=== PATIENT | female | born 1955 ===

== ENCOUNTER 2025-07-17 14:05 | Emergency (ER) | payer MEDICARE, SELFPAY ==
--- NOTE | ~2025-07-17 | CT_ITS ---
EXAMINATION: CT HEAD WITHOUT IV CONTRAST HISTORY: trauma. TECHNIQUE: Unenhanced helical CT of the head was performed per standard departmental protocol. Coronal and sagittal reformats of the head were also evaluated. One or more of the following techniques was used for dose reduction: Automated exposure control, adjustment of the mA and/or kV according to patient size, use of iterative reconstruction technique. DLP: 646 mGy-cm COMPARISON: There are no prior studies available for comparison. FINDINGS: BRAIN: The brain parenchyma is unremarkable. There is normal ko/white differentiation. The ventricular system is normal in size and configuration. There is no mass effect or midline shift. No intra- or extra-axial fluid collections are identified. SINUSES: Minimal membranous soft tissue thickening in the left frontal sinus. Ossification in the right frontal sinus probably representing a small osteoma. The visualized paranasal sinuses are otherwise clear. The mastoid air cells and middle ear cavities are well pneumatized. ORBITS: The visualized orbits are unremarkable. BONES/SOFT TISSUES: The extracranial soft tissues are unremarkable. The calvarium is intact. No suspicious lytic or sclerotic lesions. CT/CT head/brain wo IV con IMPRESSION: No acute intracranial abnormality. Electronically signed by: Laura Obregon MD 07/17/2025 04:14 PM [facility]
--- NOTE | ~2025-07-17 | CT_ITS ---
EXAMINATION: CT CERVICAL SPINE WITHOUT IV CONTRAST HISTORY: trauma. TECHNIQUE: Helical CT of the cervical spine was performed per standard departmental protocol. Coronal and sagittal reformatted images were also evaluated. One or more of the following techniques was used for dose reduction: Automated exposure control, adjustment of the mA and/or kV according to patient size, use of iterative reconstruction technique. DLP: 442 mGy-cm COMPARISON: There are no prior studies available for comparison. FINDINGS: CERVICAL SPINE: There is mild 3 mm anterior subluxation of C4 with respect to C5. Bone alignment is otherwise normal. No acute fracture. No dislocation. Multilevel degenerative spondylosis and degenerative disc disease greatest at C5-6 and C6-7. Mild bilateral multilevel facet arthritis. Degenerative changes at the C1 dens articulation. BRAIN: The visualized portion of the brain is unremarkable. SINUSES: The visualized paranasal sinuses, mastoid air cells and middle ear cavities are unremarkable. LUNG APICES: The visualized lung apices are clear. SOFT TISSUES: Prominent adenoidal soft tissue seen in the oropharynx. There is asymmetric increased left parapharyngeal soft tissue causing mass effect on the oropharynx. There is apparent effacement of the left piriform sinus. Correlation with visual inspection recommended. This could be better evaluated with neck CT with IV contrast if clinically warranted. Small bilateral cervical lymph nodes. No enlarged lymph nodes. 1.3 x 1.8 cm right thyroid nodule. CT/CT cervical spine wo IV con IMPRESSION: No acute fracture or dislocation. Mild 3 mm anterior subluxation of C4 with respect to C5. Degenerative changes. Prominent adenoidal soft tissue. Asymmetric increased soft tissue in the left parapharyngeal space causing mass effect on the oropharynx and apparent effacement of the left piriform sinus. Correlation with visual inspection recommended. This could be better evaluated with soft tissue neck CT with IV contrast if clinically warranted. 1.3 x 1.8 cm right thyroid nodule. Follow-up elective outpatient thyroid ultrasound recommended. Electronically signed by: Laura Obregon MD 07/17/2025 04:05 PM [facility]
--- NOTE | ~2025-07-17 | CT_ITS ---
EXAMINATION: CT ABDOMEN PELVIS WITHOUT IV CONTRAST HISTORY: rt flank pain,s/p fall COMPARISON: There are no prior studies available for comparison. TECHNIQUE: CT scan of the abdomen and pelvis was performed without contrast using standard departmental protocol. Coronal and sagittal reformatted images were generated and reviewed. This CT exam was performed with one or more of the following dose reduction techniques: automated exposure control, adjustment of the mA and/or kV according to patient size, use of iterative reconstruction technique. DLP: 683 mGy-cm FINDINGS: LOWER CHEST: The visualized lung bases are clear. There is no pleural effusion. CARDIOVASCULATURE: The heart is normal in size. There is no pericardial effusion. LIVER: The liver is normal in size and contour. The liver has an unremarkable unenhanced appearance. GALLBLADDER / BILE DUCTS: The gallbladder is unremarkable. There is no intra or extrahepatic biliary ductal dilatation. SPLEEN: The spleen is normal in size and has an unremarkable unenhanced appearance. PANCREAS: The pancreas has an unremarkable unenhanced appearance. ADRENAL GLANDS: Unremarkable. KIDNEYS/RETROPERITONEUM: No renal calculi are identified. There is no hydronephrosis. No ureteral dilatation. No perinephric collection. LYMPH NODES: No retroperitoneal lymphadenopathy is identified in the abdomen or pelvis. VASCULATURE: No abdominal aortic aneurysm MESENTERY/PERITONEUM: No free fluid. No masses. There is no free intraperitoneal gas. STOMACH: Normal . SMALL BOWEL: The small bowel is normal in caliber. COLON: Constipation. The colon is otherwise unremarkable. APPENDIX: Normal. URINARY BLADDER/PELVIC ORGANS: The urinary bladder is unremarkable. Uterus and adnexa are unremarkable. No pelvic mass. BONES / SOFT TISSUES: Degenerative changes of the spine. Probable L4 vertebral body hemangioma. Small umbilical hernia containing fat. CT/CT abdomen pelvis wo IV con IMPRESSION: No acute findings. The right kidney is normal-appearing. Constipation. Electronically signed by: Laura Obregon MD 07/17/2025 04:13 PM [facility]
[2025-07-17 14:11] VITALS: BP 126/67; BP 128/62; PULSE 58; PULSE 62; RESP 16; TEMP 36.5; O2SAT 96; O2SAT 97; BMI 31.0
--- NOTE | 2025-07-17 14:53 | ED_ITS ---
HPI - Fall General Chief Complaint: Fall Stated Complaint: fall, R/L knee pain, BACK PAIN -THINNERS +TRENT Time Seen by Provider: 07/17/25 14:47 Source: patient Mode of arrival: ambulatory Limitations: no limitations History of Present Illness HPI Narrative: This is 70 years old female patient brought in by ambulance after a mechanical fall she was a grocery store she has slipped and fell she is complaining of lower back pain complaint: fall Onset (ago): hour(s) (1) Fall from: standing Place fall occurred: other (grocery store) Loss of consciousness: none Prolonged down time: no Symptoms prior to fall: none Context: tripped/slipped Associated symptoms (after fall): denies Related Data Previous Rx's ?Medication ?Instructions ?Recorded cyclobenzaprine 5 mg tablet 5 mg PO TID PRN muscle spa sm #14 07/17/25 tabs tramadol 50 mg tablet 50 mg PO BID PRN pain #8 tab s 07/17/25 Allergies Allergy/AdvReac Type Severity Reaction Status Date / Time aspirin (ASA) Allergy Hives Verified 07/17/25 14:15 Penicillins (PCN) Allergy Hives Verified 07/17/25 14:15 Review of Systems Review of Systems: Yes all other systems are reviewed and are negative ENT: Reports system reviewed and no additional complaints, except as documented Cardiovascular: Cardiovascular: Reports no additional cardiovascular complaints [facility] Past Medical History Attestation statement: The following information was validated with the patient. [facility] Narrative: diverticulitis Social History Social History Advance Directives: No Advance Directives Information Provided: Yes Physical Exam Vital Signs: Vital Signs: Last Vital Signs Temp 97.7 F 07/17/25 16:42 Pulse 62 07/17/25 16:42 Resp 16 07/17/25 16:42 BP 128/62 07/17/25 16:42 Pulse Ox 96 07/17/25 16:42 O2 Del Method Room Air 07/17/25 16:42 BMI result Body Mass Index 31.0 No acute distress Const: General: cooperative Nutritional Appearance: well nourished Orientation/consciousness: patient oriented x3 Limitations: no limitations HEENT: Head: Yes normal to inspection Ears: hearing grossly normal bilaterally General nose exam: Normal external nose present Face and sinus: Yes normal facial exam Mouth: Normal oral and palatal mucosa present Neck: Neck: Yes normal visual inspection Chest: Chest palpation & inspection: normal inspection of the chest Resp: Effort & Inspection: normal respiratory effort Auscultation: clear to auscultation bilaterally Cardio: Jugular venous distension: no JVD Rate: regular rate Rhythm: regular rhythm GI: Inspection: Yes normal to inspection Palpation (GI): Soft to palpation Skin: General skin exam: no rashes or lesions noted, elasticity normal and turgor normal Lesions: no lesions Rashes: no rashes Trauma: no lace rations or abrasions Neuro: General: patient oriented x3 Course Reevaluation(s) Reevaluation #1: Imaging pending the case will be signed out to Dr Sorensen I am off shift now Time: 15:56 Medications Administered Discontinued Medications Generic Name Dose Route Start Last Admin Trade Name Freq PRN Reason Stop Dose Admin Acetaminophen 975 mg 07/17/25 14:50 07/17/25 15:06 Acetaminophen 325 Mg Tablet PO 07/17/25 14:51 975 mg ONCE ONE Administration Tramadol HCl 50 mg 07/17/25 16:14 07/17/25 16:21 Tramadol Hcl 50 Mg Tablet PO 07/17/25 16:15 50 mg ONCE ONE Administration Medical Decision Making Medical Decision Making [facility] Narrative: Patient presented to the emergency department complaining of fall lower back pain we will obtain imaging I received sign-out from my colleague Dr. Monterroso Patient was given an additional dose of tramadol. CT scans of the head cervical spine, abdomen and pelvis did not show any acute abnormality the CT scan of the cervical spine mentioned that there is an asymmetric increased soft tissue in the left parapharyngeal space causing mass effect on the oropharynx. Patient does not have any symptoms, on physical exam, patient is upper airway is completely patent. Patient denies any recent URIs, sore throat. The above-mentioned was discussed with the patient. Differential Diagnosis Fracture/contusion Admission/Observation Consideration of admission/observation: Escalation of care including admission/observation considered Independent Interpretation I performed an independent interpretation of an: CT Scan Radiology Impression Discussion of test interpretation with radiology: I have reviewed the radiologist's reading. Radiologist Impression: BRAIN: The brain parenchyma is unremarkable. There is normal ko/white differentiation. The ventricular system is normal in size and configuration. There is no mass effect or midline shift. No intra- or extra-axial fluid collections are identified. SINUSES: Minimal membranous soft tissue thickening in the left frontal sinus. Ossification in the right frontal sinus probably representing a small osteoma. The visualized paranasal sinuses are otherwise clear. The mastoid air cells and middle ear cavities are well pneumatized. ORBITS: The visualized orbits are unremarkable. BONES/SOFT TISSUES: The extracranial soft tissues are unremarkable. The calvarium is intact. No suspicious lytic or sclerotic lesions No acute fracture or dislocation. Mild 3 mm anterior subluxation of C4 with respect to C5. Degenerative changes. Prominent adenoidal soft tissue. Asymmetric increased soft tissue in the left parapharyngeal space causing mass effect on the oropharynx and apparent effacement of the left piriform sinus. Correlation with visual inspection recommended. This could be better evaluated with soft tissue neck CT with IV contrast if clinically warranted. 1.3 x 1.8 cm right thyroid nodule. Follow-up elective outpatient thyroid ultrasound recommended. No acute findings. The right kidney is normal-appearing. Constipation. Discharge Plan Discharge Clinical Impression: Fall, Flank pain Patient Disposition: Home, Self-Care Instructions: Fall Prevention for Older Adults (ED), Musculoskeletal Pain (ED) Additional Instructions: Please follow-up with your primary care physician tomorrow. If you have any worsening or new symptoms, please return to the emergency room or call 911 Prescriptions: New cyclobenzaprine 5 mg tablet 5 mg PO TID PRN (Reason: muscle spasm) Qty: 14 0RF Rx Instructions: do not take together with tramadol tramadol 50 mg tablet 50 mg PO BID PRN (Reason: pain) Qty: 8 0RF Interventions: ED Discharge Assessment Last Done: 07/17/25 16:42 Discharge Date/Time: 07/17/25 16:43 Print Language: Khmer
[2025-07-17 16:42] VITALS: BP 128/62; PULSE 62; RESP 16; TEMP 36.5; O2SAT 96
--- OUTSIDE RECORDS SUMMARY | 2025-07-17 19:29 | XMS_ITS | Clinical Summary ---
Author Organization [facility] Address [address] [place] [address] Care Team Providers Care Machine Set Up Name Role Phone Unavailable Primary Care Provider Unavailabl e Social History Tobacco Use Types Packs/Day Years Used Date Smoking Tobacco: Never Assessed Comments Unknown Sex and Gender Information Value Date Recorded Sex Assigned at Not on file Legal Sex Female 4:21 PM EDT Gender Identity Not on file Sexual Orientation Not on file Plan of Treatment Health Maintenance Due Date Last Done Comments Advance Care Planning 1955 Hepatitis C Virus Screening 1955 DTaP/Tdap/Td Vaccines (1 - Tdap) 02/27/1976 Pneumococcal Vaccines 50+ (1 of 1 - PCV) 2007 Zoster (Shingles) Vaccine (1 of 2) 2007 COVID-19 Vaccine ( - 2023-2 5 season) 2025 RSV Vaccine 50 years and old er and Patients (1 - 1-dose 75+ series) 02/27/2032 Hepatitis B Vaccines Aged Out No long er eligible based on patient's age to complete this topic
== END 2025-07-17 16:43 | disposition home or self-care (01) ==
PROVIDERS: Emergency Provider Emergency Medicine
DX: R10.A1 Flank pain, right side (principal); M54.2 Cervicalgia; M54.50 Low back pain, unspecified; M25.561 Pain in right knee; M25.562 Pain in left knee; W18.30XA Fall on same level, unspecified, initial encounter; Y93.89 Activity, other specified; Y92.512 Supermarket, store or market as the place of occurrence of the external cause; Z79.01 Long term (current) use of anticoagulants
CPT/HCPCS: 70450; 72125; 74176; 99283; 99284

== ENCOUNTER → 2025-07-17 14:53 | Outpatient (BNV) | payer MEDICARE, SELFPAY | PROVIDERS: Emergency Provider Emergency Medicine; Visit Provider Radiology Diagnostic Radiology | DX: K59.00 Constipation, unspecified (principal); S13.150A Subluxation of C4/C5 cervical vertebrae, initial encounter; M47.812 Spondylosis without myelopathy or radiculopathy, cervical region; E04.1 Nontoxic single thyroid nodule; Z04.3 Encounter for examination and observation following other accident | CPT/HCPCS: 70450; 72125; 74176 ==